=== PATIENT | female | born 1950 | race African-American/Black ===

== ENCOUNTER 2021-09-26 15:26 | Emergency (ER) | payer BC, MEDICAID ==
[~2021-09-26] VITALS: Ht 160 cm; Wt 78.0 kg
[~2021-09-26 15:26] MED LIST: ALBU-150 PO; BACL10TA4 PO; CITA20TA15 PO; CLOP75TA PO; DILT-135 PO; IMI25 PO; METF-1139 PO; MIRT-91 PO; OMEP40EC24 PO; PANT40EC PO; SIMV20TA1 PO; TRAM50TA1 PO; VALS160T2 PO
[2021-09-26 15:51] VITALS: BP 138/72
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
--- NOTE | 2021-09-26 19:17 | NUR ---
recieved transfer of care report from xochitl del angel
[2021-09-26 19:25] VITALS: BP 164/76
--- NOTE | 2021-09-26 19:26 | NUR ---
Patient discharged with v/s stable. Written and verbal after care instructions given and explained. Patient verbalized understanding. Ambulatory with steady gait. All questions addressed prior to discharge. Advised to follow up with PMD.
== END 2021-09-26 19:25 | disposition home or self-care (01) ==
LOC: MED 15:26
DX: S16.1XXA Strain of muscle, fascia and tendon at neck level, initial encounter (principal); J45.909 Unspecified asthma, uncomplicated; I10 Essential (primary) hypertension; E11.9 Type 2 diabetes mellitus without complications; Z79.4 Long term (current) use of insulin; Z88.0 Allergy status to penicillin; Z88.5 Allergy status to narcotic agent; Z79.899 Other long term (current) drug therapy; V49.88XA Car occupant (driver) (passenger) injured in other specified transport accidents, initial encounter; Y93.89 Activity, other specified; Y92.89 Other specified places as the place of occurrence of the external cause; Y99.8 Other external cause status
CPT/HCPCS: 70450; 72125; 99284